=== PATIENT | female | born 1980 | race Two or more races ===

== ENCOUNTER 2019-05-13 12:26 | Emergency (ER) | payer OTHER ==
[~2019-05-13] VITALS: Ht 157.5 cm; Wt 65.8 kg
[2019-05-13 12:26] VITALS: BP 117/72
--- NOTE | 2019-05-13 12:26 | NUR ---
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 patient was given 100mcg of fentanyl prior to arrival. patient is alert and oriented x4, able to ambulate however with pain.
--- NOTE | 2019-05-13 12:37 | Emergency Room Report ---
History of Present Illness General Chief Complaint: Back Injury Source: Patient, EMS Present Illness HPI 38-year-old female in by EMS complaining of low back pain starting today. Patient was at work, lifting pieces wood and placing in trash can and felt sharp pain. Unable to straighten back. Pain is 10 out of 10, sharp in quality. Patient received fentanyl 100 MCG by EMS. Denies fever, vomiting, abdominal pain, numbness, weakness, bowel/bladder incontinence. LMP May 06, 2019 Allergies: Coded Allergies: No Known Allergies (Unverified , 05/13/19) Patient History Past Medical History: none Past Surgical History: none Last Menstrual Period: 'No period' per patient Nursing Documentation-[facility] Past Medical History: No Stated History Review of Systems All Other Systems: negative except mentioned in HPI Physical Exam Vital Signs Date Time Temp Pulse Resp B/P (MAP) Pulse Ox O2 Delivery O2 Flow Rate FiO2 05/13/19 12:21 98.6 82 16 117/72 (87) 98 Room Air Sp02 EP Interpretation: reviewed, normal General Appearance: no apparent distress, alert, GCS 15, non-toxic Respiratory: chest non-tender, lungs clear, normal breath sounds, speaking full sentences Cardiovascular #1: regular rate, rhythm, no edema Gastrointestinal: normal bowel sounds, non tender, soft, non-distended, no guarding, no rebound Musculoskeletal: other - no spinal tendernes, tenderness to L5-S1 paravertebral region, with spasm. + right SLR. Neurologic: alert, oriented x3, motor strength/tone normal Skin: no rash, warm/dry Medical Decision Making PA Attestation This patient was seen under the direct supervision of Dr. Shine, who directed all aspects of care and diagnostic interpretation. ER Course ED course HPI: 38-year-old female in by EMS complaining of low back pain starting today. Patient was at work, lifting pieces wood and placing in trash can and felt sharp pain. Unable to straighten back. Pain is 10 out of 10, sharp in quality. Patient received fentanyl 100 MCG by EMS. Denies fever, vomiting, abdominal pain, numbness, weakness, bowel/bladder incontinence. No red flag back pain symptoms. Ddx: Muscle strain, ligament strain, contusion, arthritis, discogenetic disease , non- musculoskeletal, and others. HPI & PE consistent with: Lumbar strain Orders/ Interventions: UA shows 3+ blood, RBC 2-4, no evidence of UTI. CBC normal, CMP normal except for elevated LFT. Negative hCG. Negative CT lumbar spine. Patient medicated in the field by EMS with fentanyl. Still in a lot of pain. Pain is 10/10. Medicated with Toradol 30 mg, Robaxin p.o. and lidocaine patch in the ER. Pain improved to 6/10. Disposition: At this time pt. is stable for d/c to home. Discharge with prescription for ibuprofen and Robaxin. Modify physical activity. Avoid strenuous physical activity. Return to modified work on 05/17/2019. Will provide printed patient care instructions, and any necessary prescriptions. Care plan and follow up instructions have been discussed with the patient prior to discharge. Please note that this Emergency Department Report was dictated using [employer] technology software, occasionally this can lead to erroneous entry secondary to interpretation by the dictation equipment. CT/MRI/US Diagnostic Results CT/MRI/US Diagnostic Results : Imaging Test Ordered: CT lumbar spine (without contrast) Impression Findings: There is no evidence of an acute fracture or malalignment. Height and configuration of the vertebral bodies and intervertebral discs are within normal limits. The facets are unremarkable. There is no soft tissue swelling. Impression: Negative lumbar spine CT Interpreted by radiology Last Vital Signs Date Time Temp Pulse Resp B/P (MAP) Pulse Ox O2 Delivery O2 Flow Rate FiO2 05/13/19 12:21 98.6 82 16 117/72 (87) 98 Room Air Status: unchanged Disposition: HOME, SELF-CARE Condition: Improved Scripts Methocarbamol* (ROBAXIN-750*) 750 Mg Tablet 750 MG PO TID, #15 TAB 0 Refills Prov: Ryder Lamas 05/13/19 Ibuprofen (Ibuprofen) 600 Mg Tablet 600 MG PO Q8HR for for pain with food, #20 TAB Prov: Ryder Lamas 05/13/19 Patient Instructions: Back Injury Prevention, Back Pain, Adult Additional Instructions: Take prescription as prescribed. Follow-up with PCP in 2 days or return to ER if worsening symptoms, new symptoms or sudden change in condition Ryder Lamas May 13, 2019 12:37
[2019-05-13] MEDS ORDERED: Ketorolac 30mg Inj IM ONE (12:45)
[2019-05-13] MEDS ORDERED: Methocarbamol 750mg tab ORAL ONE (12:45)
[2019-05-13 12:57] LABS: APPEARANCE,URINE CLEAR; BILIRUBIN, URINE NEGATIVE (NEGATIVE); COLOR,URINE PALE YELLOW; GLUCOSE, URINE (UA) NEGATIVE (NEGATIVE); KETONES,URINE NEGATIVE (NEGATIVE); LEUKOCYTE ESTERASE ,URINE NEGATIVE (NEGATIVE); NITRITE,URINE NEGATIVE (NEGATIVE); PH,URINE 5 (4.5-8.0); PROTEIN,URINE NEGATIVE (NEGATIVE); UROBILINOGEN,URINE NORMAL MG/DL (0.0-1.0)
[2019-05-13 14:00] LABS: BASOPHILS % (AUTO) 0.4 % (0.0-2.0); EOSINOPHILS % (AUTO) 0.6 % (0.0-3.0); HEMATOCRIT 38.6 % (37.0-47.0); LYMPHOCYTES % (AUTO) 23.8 % (20.0-45.0); MEAN CORPUSCULAR VOLUME 88 FL (80-99); MONOCYTES % (AUTO) 5.8 % (1.0-10.0); NEUTROPHILS % (AUTO) 69.4 % (45.0-75.0); PLATELET COUNT 189 K/UL (150-450); RED BLOOD COUNT 4.38 M/UL (4.20-5.40); RED CELL DISTRIBUTION WIDTH 11.7 % (11.6-14.8); WHITE BLOOD COUNT 8.6 K/UL (4.8-10.8)
[2019-05-13 14:13] LABS: ANION GAP 10 mmol/L (5-15); BLOOD UREA NITROGEN 11 mg/dL (7-18); CARBON DIOXIDE 25 MMOL/L (21-32); CHLORIDE 107 MMOL/L (98-107); CREATININE 0.7 MG/DL (0.55-1.30); POTASSIUM 3.8 MMOL/L (3.5-5.1); SODIUM 142 MMOL/L (136-145)
[2019-05-13 14:20] LABS: ALANINE AMINOTRANSFERASE 102 U/L (12-78); ALBUMIN 3.9 G/DL (3.4-5.0); ALKALINE PHOSPHATASE 123 U/L (46-116); ASPARTATE AMINO TRANSFERASE 47 U/L (15-37); BILIRUBIN,TOTAL 0.4 MG/DL (0.2-1.0)
[2019-05-13 15:11] VITALS: BP 125/79
--- NOTE | 2019-05-13 15:11 | NUR ---
ED Nurse Note: Patient has came back from CT, complains of 6/10 pain
--- NOTE | 2019-05-13 15:17 | Diagnostic Imaging Report ---
Indication: Back pain Technique: Continuous helical transaxial imaging of the lumbar spine was obtained. No IV contrast was administered. Coronal 2-D reformats were also obtained. Study obtained in a Siemens sensation [address] Total Dose length Product (DLP): 630.[address] Dose Index Volume (CTDIvol): 18.79 mGy Comparison: None Findings: There is no evidence of an acute fracture or malalignment. Height and configuration of the vertebral bodies and intervertebral discs are within normal limits. The facets are unremarkable. There is no soft tissue swelling. Impression: Negative lumbar spine CT The CT scanner at [facility] is accredited by the [employer] and the scans are performed using dose optimization techniques as appropriate to a performed exam including Automatic Exposure control.
[2019-05-13] MEDS ORDERED: IBUPROFEN600 M1 PO (15:29)
[2019-05-13] MEDS ORDERED: ROBAXIN-750750 MG PO (15:31)
[2019-05-13 15:45] VITALS: BP 129/70
--- NOTE | 2019-05-13 15:45 | NUR ---
ER DISCHARGE NOTE: Patient is cleared to be discharged per ERMD, pt is aox4, on room air, with stable vital signs. pt was given dc and prescription instructions, pt was able to verbalize understanding, pt id band removed without complications. pt is able to ambulate with steady gait. pt took all belongings.
== END 2019-05-13 15:45 | disposition home or self-care (01) ==
LOC: EDBD 12:26 → EMR 12:50
DX: S39.012A Strain of muscle, fascia and tendon of lower back, initial encounter (principal); X50.9XXA Other and unspecified overexertion or strenuous movements or postures, initial encounter; Y93.H3 Activity, building and construction; Y92.89 Other specified places as the place of occurrence of the external cause; Y99.0 Civilian activity done for income or pay
CPT/HCPCS: 36415; 72131; 80053; 81001; 84702; 84703; 85025; 96372; 99284; J1885